=== PATIENT | female | born 1975 | race Caucasian/White ===

== ENCOUNTER 2022-12-10 00:26 | Day surgery (SDC) | payer OTHER, SELFPAY ==
[2022-12-06 11:13] VITALS: BMI 23.0
--- NOTE | 2022-12-06 11:21 | PC.NURSE ---
Report to the Outpatient Waiting Room, entrance under the green pavilion located off [facility], at time 0600 on date 12/10/22. Planned Procedure Time: 0730. Time changes happen often and if your time is changed the preop area will call you the afternoon before. - You and your visitor will be asked to self-screen and do not enter if you have any COVID symptoms. - Only one visitor is requested with a max of two and NO children visitors are allowed at this time. - The patient visitor may be requested to leave or wait in car when not with patient due to distancing restrictions. - A mask is optional within the hospital at this time. Patients may have clear liquids (water, carbonated beverages, clear teas, apple juice) until 3 hours prior to surgery with a maximum of 20 ounces. - No food from midnight until time of surgery Take the following medications with a SIP of water the morning of surgery: HYDROXYZINE IF NEEDED DO NOT STOP ANY OF YOUR OTHER PRESCRIPTION MEDICATIONS PRIOR TO SURGERY EXCEPT THE FOLLOWING Medications to discontinue per physician: VITAMINS/SUPPLEMENTS Date to take last dose: 12/06/22 Please no make-up, nail english, hairspray, perfume, deodorant, or body powder the day of surgery. No jewelry (including any body piercings) or valuables the day of surgery, leave them at home. Please take a shower or bath the night before, or the morning of, surgery with an antibacterial soap. Wear comfortable, loose fitting clothing. - Jewelry must be removed prior to entering the operating room. Rings and piercings that are not removed may be cut off. - The hospital will not accept responsibility for valuables. - Please leave all valuables, including medications, at home the day of surgery. If you are going home after surgery, a licensed winch driver must drive you home. - NO public transportation without another adult if you receive anesthesia. - We recommend that an adult stay with you for 24 hours following discharge. - We also recommend that you do not drive, make important decision, drink alcoholic beverages, or take any drugs that were not prescribed by your health care provider for at least 24 hours after your discharge time. Follow any additional instructions given to you from your surgeon. If you or anyone in your household have experienced Covid symptoms in the past week, please notify your surgeon or the nurse liaison at the phone number below for possible testing. Telephone instructions given to PT - NICOLASA MONTIEL and asked if any additional questions and then verbalized understanding. Patient advised to call surgeon office or pre surgery nurse liaison [phone] if any additional questions.
--- NOTE | 2022-12-07 07:38 | PM.IMHP ---
H&P: HPI History of Present Illness Date/Time: 12/07/22 07:38 Chief Complaint: Bleeding pelvic pain and severe dyspareunia Narrative: This is 47-year-old 3 admitted with symptomatic this hysterectomy salpingectomy she had no luck for pain as she refused or using made UD she is status post tubal ligation she also has second-degree prolapse liver pain discomfort bleeding refractory medical therapy she will undergo robotic total hysterectomy and bilateral salpingectomy risks and benefits this was of , aspiration pneumonia, bleeding, transfusion, perforation injury to bowel, bladder, ureters, or other internal organs with need for open laparotomy and repair. She received the [employer] handout entitled hysterectomy as well as the de Alexa handout. She had all questions answered. She asked to proceed COUNT INCLUDES THE [facility] Social History Social History Smoking status: Current some day smoker Tobacco type: cigarettes Alcohol intake: current Drinks per week: 2 Substance use: current Substance use type: marijuana Living arrangements: with family Spiritual care concerns: No Meds Home Medications and Allergies Home Medications Medication Instructions Recorded Confirmed Type ascorbic acid (vitamin C) 500 mg 1,000 mg PO DAILY 12/06/22 12/06/22 History tablet (Vitamin C) cetirizine 10 mg tablet (Zyrtec) 10 mg PO DAILY 12/06/22 12/06/22 History cholecalciferol (vitamin D3) 125 125 mcg PO DAILY 12/06/22 12/06/22 History mcg (5,000 unit) tablet (Vitamin D3) ferrous sulfate 325 mg (65 mg 325 mg PO DAILY 12/06/22 12/06/22 History iron) tablet (Iron (ferrous sulfate)) hydroxyzine HCl 25 mg tablet 25 mg PO QID PRN Anxiety 12/06/22 12/06/22 History meclizine 25 mg tablet 25 mg PO Q6H VERTIGO 12/06/22 12/06/22 History multivitamin 1 tablet PO DAILY 12/06/22 12/06/22 History pantoprazole 20 mg tablet,delayed 20 mg PO BID 12/06/22 12/06/22 History release Allergies Allergy/AdvReac Type Severity Reaction Status Date / Time No Known Allergies Allergy Verified 12/06/22 11:08 Exam Const: General: cooperative, healthy appearing, comfortable and overweight Orientation/consciousness: oriented to person, oriented to place and oriented to time Resp: Effort & Inspection: normal respiratory effort Cardio: Rate: regular rate Rhythm: regular rhythm Heart sounds: S1 normal heart sound present and S2 normal heart sound present GI: Inspection: normal to inspection Percussion: Yes normal to percussion Auscultation: normal bowel sounds : External Female Exam: normal external appearance Speculum Exam - Vagina: normal appearance of the vagina Speculum Exam - Cervix: normal appearance of the cervix (Secondary prolapse present) Bimanual exam- vagina & uterus: enlarged (Uterus approximately 14 weeks in size) Bimanual Exam- Adnexa, other: normal adnexae Assessment and Plan Assessment and plan (1) Uterine fibroid: Code(s): D25.9 - Leiomyoma of uterus, unspecified Status: Acute (2) Pelvic pain: Code(s): R10.2 - Pelvic and perineal pain Status: Acute (3) Dyspareunia: Status: Acute (4) Excessive bleeding: Code(s): R58 - Hemorrhage, not elsewhere classified Status: Acute Plan Robotic total vaginal hysterectomy and bilateral salpingectomy
[2022-12-10] VITALS (9 sets, daily range): BP systolic 92–131; BP diastolic 55–79; PULSE 51–76; RESP 8–16; TEMP 36.2–36.9; O2SAT 99–100
--- NOTE | 2022-12-10 06:25 | WPDHPUPDATE1 ---
History and Physical Update Update Date/Time: 12/10/22 06:25 History and Physical has been reviewed, including an updated exam of the patient. There are NO changes in the patient's condition. Risks, benefits, and alternatives have been discussed and questions answered. Patient agrees to proceed with procedure.
--- NOTE | 2022-12-10 10:16 | WPDANESEPPF ---
Anes - Initial Pre Proc Eval Procedure: Operation Date: 12/10/22 11:30 Proposed Procedures p Robotic Assisted Total Vaginal Hysterectomy with Bilateral Salpingectomy - Adam Weinstein MD Date/Time: 12/10/22 10:16 Surgeon: Adam Weinstein MD Pre Op Diagnosis: enlarged uterus,pelvic pain,fibroids Patient Data Age: 47 Gender: F Height: 1.63 m Weight: 60.8 kg Allergies Allergy/AdvReac Type Severity Reaction Status Date / Time No Known Allergies Allergy Verified 12/10/22 10:06 Home Medications Medication Instructions Recorded Confirmed Type ascorbic acid (vitamin C) 500 mg 1,000 mg PO DAILY 12/06/22 12/10/22 History tablet (Vitamin C) cetirizine 10 mg tablet (Zyrtec) 10 mg PO DAILY 12/06/22 12/10/22 History cholecalciferol (vitamin D3) 125 125 mcg PO DAILY 12/06/22 12/10/22 History mcg (5,000 unit) tablet (Vitamin D3) ferrous sulfate 325 mg (65 mg 325 mg PO DAILY 12/06/22 12/10/22 History iron) tablet (Iron (ferrous sulfate)) hydroxyzine HCl 25 mg tablet 25 mg PO QID PRN Anxiety 12/06/22 12/06/22 History meclizine 25 mg tablet 25 mg PO Q6H VERTIGO 12/06/22 12/06/22 History multivitamin 1 tablet PO DAILY 12/06/22 12/10/22 History pantoprazole 20 mg tablet,delayed 20 mg PO BID 12/06/22 12/10/22 History release hydrocodone 5 mg-acetaminophen 325 1 tablet PO Q4H PRN pain #30 tabs 12/10/22 Rx mg tablet Patient hx anesthesia problems: post op nausea/vomiting Family hx anesthesia problems: none Results Review: All pre-operative results and documents have been reviewed as part of the pre-operative evaluation. [facility] Past Medical History Medical History Anxiety Social History Social History Smoking status: Current some day smoker Tobacco type: cigarettes Alcohol intake: current Drinks per week: 2 Substance use: current Substance use type: marijuana Living arrangements: with family Spiritual care concerns: No Anes - Eval Final PreProcedure Day of Procedure 12/10/22 10:16 Patient weight: normal Heart: regular rate and rhythm Lungs: clear to auscultation Airway: Mallampati scale class II Neurological: alert and oriented Last oral intake: >/= 8 hours ASA classification: II Emergent: no Anesthetic plan: proceed Anesthesia type and monitoring: general ETT and standard monitoring Results Review: All pre-operative results and documents have been reviewed as part of the pre-operative evaluation. Informed Consent: The patient's anesthetic plan and its attendant risks and benefits were discussed with the patient/family/POA. Questions were solicited and answers provided to the satisfaction of the patient/family/POA.
[2022-12-10] MEDS: ACETAMINOPHEN 500 MG TABLET 1000 MG PO (10:27)
[2022-12-10] MEDS: LACTATED RINGERS 1,000 ML 30 ML IV CONT ×2 (10:28→12:14)
[2022-12-10] MEDS: KETOROLAC 15 MG/ML VIAL (*BKC) IV PUSH (10:29)
[2022-12-10] MEDS: SCOPOLAMINE 1.5 MG PATCH TRANSDERM (10:33)
[2022-12-10 10:34] LABS: Basophils Absolute Auto 0.1 K/mm3 (0.0-0.1); Basophils Percent Auto 0.7 % (0.2-1.2); Eosinophils Absolute Auto 0.1 K/mm3 (0-0.3); Eosinophils Percent Auto 0.8 % (0-4.4); Hemoglobin 11.5 g/dL (12.0-15.0); Immature Granulocyte Absolute 0.02 K/mm3 (0.00-0.031); Immature Granulocyte Percent A 0.3 % (0-0.5); Lymphocytes Absolute Auto 1.79 K/mm3 (0.9-3.2); Lymphocytes Percent Auto 24.7 % (18.3-44.2); Mean Corpuscular HGB Conc 31.9 g/dl (32-36); Mean Corpuscular Hemoglobin 27.4 pg (26-34); Mean Corpuscular Volume 85.9 fl (80-100); Mean Platelet Volume 8.8 fl (7.4-10.4); Monocytes Absolute Auto 0.4 K/mm3 (0.1-0.6); Monocytes Percent Auto 5.9 % (2.6-8.5); Neutrophils Absolute Auto 4.9 K/mm3 (1.3-6.7); Neutrophils Percent Auto 67.6 % (45.5-73.1); Platelet Count Result 345 k/mm3 (150-375); Red Blood Count 4.19 M/mm3 (4.2-5.4); Red Cell Distribution Width 18.5 % (11.5-14.5); White Blood Count 7.3 K/mm3 (4.5-10.0)
[2022-12-10] MEDS: ceFAZolin 2 GM/D5W 50 ML 2 GM/50 ML BAG IVPB (10:47)
--- NOTE | 2022-12-10 11:56 | P.OP_ITS ---
Procedure Note - Detailed Date of Procedure 12/10/22 Pre-op Diagnosis enlarged uterus,pelvic pain,fibroids Post-op Diagnosis Same Procedure Performed Robotic total vaginal hysterectomy bilateral salpingectomy Surgeon Adam Weinstein MD Anesthesia General Indications this 47-year-old female with symptomatic uterine fibroids Findings multiple irregular-shaped fibroids normal-appearing ovaries and tubes Description of Procedure the patient is prepped draped in normal sterile fashion placed in dorsal lithotomy position. Under excellent general trach anesthesia weighted speculum placed posterior fornix vagina. Anterior lip of cervix grasped with single- tooth tenaculum. Uterus sounded 8cm. Serial dilatation with fragmented dilators performed followed by passes the 8. DESIRAE and the 3. 0.5 cold cup. Next a 16 Latvian catheter was placed in the bladder which was emptied of clear urine. The weighted speculum and single-tooth removed and the gloves were changed. Supraumbilical incision made the Veress needle passed in the abdomen. Abdomen filled with CO2 gas to 15mm Hg. The 8mm trocar advanced in the abdomen downside visualized no injury seen. Patient placed in Trendelenburg and right left l ateral quadrant incisions made 8mm trocars advanced under direct visualization assuring no injury and right upper quadrant incision made the 8mm trocar advanced under direct visualization assuring no injury. The robot was docked. Attention was turned to console. The left round ligament grasped, burned, cut. Anterior bladder flap was formed by sharply dissecting the peritoneum and reflecting the bladder caudally away from the cervix uterus the opposite round ligament which was clamped, burned, cut. The fallopian tube on the left was skeletonized and sharply dissected away from the ovarian complex and left to the its uterine origin. The right fallopian tube was removed in the same way leaving it attached to the uterus. The utero-ovarian ligament was skeletonized to conserve the left ovary clamped, burned, cut brought to the previously cut round ligament. In like fashion the utero-ovarian ligament was skeletonized clamping burning cutting and conserving the right ovary. The left cardinal broad ligaments were then serially skeletonized clamping burning cutting and bring these lateral edge of uterus until the large tortuous blood vessels could be seen on the left these were individually clamped, burned, cut. In like fashion the cardinal broad ligaments on the right were serially skeletonized clamping burning cutting until the uterine vessels could be seen on the right t hese were individually clamped, burned, cut. Hemostasis was assured and excellent blanching of the uterus seen a colpotomy incision was then made. The uterus cervix and tubes removed through the vagina. The vagina then closed with continuous running 0V lock from lateral edge to lateral edge back to the midline. Irrigation undertaken to clear and hemostasis was assured. Gateway term was placed over the raw surface area and blood loss was estimated. The instruments were withdrawn. The robot was undocked the gas removed from the abdomen. The trocars removed the incisions closed with 4 Monocryl and glue. The patient was awakened and went recovery in satisfactory condition. All sponge, needle, instrument counts were correct. There were no immediate complications Estimated Blood Loss 25 Drains No Packing No Pathology Yes Complications No immediate complications Condition Stable Disposition PACU
[2022-12-10] MEDS: fentaNYL CITRATE INJ (*CRX) 100 MCG/2 ML VIAL 25 MCG IV PUSH ×7 (12:34→13:36)
--- NOTE | 2022-12-10 13:43 | ADMGEN ---
This patient, Ford Garcia, was admitted to OB 2nd Floor Room 283-00. Patient/family oriented to hospital policies and general routines including ID bracelet, bed and alarms, visiting hours, pain management, procedures, bathroom and other care routines, personal items, smoking policy, room service/diet, and visiting hours. Information on how to activate the Rapid Response Team has been discussed. Patient/Family are encouraged to report perceived risks to care and to ask questions if they do not understand what they are told or what they should do.
[2022-12-10] MEDS: DEXTROSE 5%/LACTATED RINGERS 1,000 ML 125 ML IV CONT (13:53)
[2022-12-10] MEDS: KETOROLAC 30 MG/ML VIAL (*BKC) IV PUSH (13:54)
[2022-12-10] MEDS: PROPARACAINE HCL 0.5% 15 ML OPHTH SOLN 1 DROP EACH EYE (14:39)
[2022-12-10] MEDS: ARTIFICIAL TEARS OPHTH SOLN 15 ML BOTTLE 1 DROP EACH EYE (14:40)
[2022-12-10] MEDS: HYDROcodone/acetaminophen (*CRX) 5-325 MG TABLET 1 TAB PO ×2 (14:43→17:44)
[2022-12-10] MEDS: SIMETHICONE 80 MG TAB.CHEW PO (14:43)
[2022-12-10] MEDS: DOCUSATE SODIUM 100 MG CAPSULE PO (17:44)
[2022-12-10] MEDS: HYDROcodone/acetaminophen (*CRX) 10-325 MG TABLET 1 TAB PO (20:43)
[2022-12-10] MEDS: IBUPROFEN 600 MG TABLET PO (20:45)
[2022-12-11] MEDS: HYDROcodone/acetaminophen (*CRX) 10-325 MG TABLET 1 TAB PO ×2 (00:26→09:08)
[2022-12-11] MEDS: SIMETHICONE 80 MG TAB.CHEW PO ×2 (00:27→09:08)
[2022-12-11 00:32] VITALS: BP 85/50; PULSE 51; RESP 16; TEMP 36.6; O2SAT 99
[2022-12-11 05:14] VITALS: BP 87/48; PULSE 62; RESP 14; TEMP 37; O2SAT 98
[2022-12-11 05:51] LABS: Basophils Absolute Auto 0.1 K/mm3 (0.0-0.1); Basophils Percent Auto 0.7 % (0.2-1.2); Eosinophils Absolute Auto 0.1 K/mm3 (0-0.3); Eosinophils Percent Auto 0.7 % (0-4.4); Hematocrit 30.7 % (37.0-47.0); Hemoglobin 9.7 g/dL (12.0-15.0); Immature Granulocyte Absolute 0.04 K/mm3 (0.00-0.031); Immature Granulocyte Percent A 0.3 % (0-0.5); Lymphocytes Absolute Auto 2.05 K/mm3 (0.9-3.2); Lymphocytes Percent Auto 16.8 % (18.3-44.2); Mean Corpuscular HGB Conc 31.6 g/dl (32-36); Mean Corpuscular Hemoglobin 27.4 pg (26-34); Mean Corpuscular Volume 86.7 fl (80-100); Mean Platelet Volume 9.2 fl (7.4-10.4); Monocytes Absolute Auto 0.7 K/mm3 (0.1-0.6); Monocytes Percent Auto 5.7 % (2.6-8.5); Neutrophils Absolute Auto 9.2 K/mm3 (1.3-6.7); Neutrophils Percent Auto 75.8 % (45.5-73.1); Platelet Count Result 258 k/mm3 (150-375); Red Blood Count 3.54 M/mm3 (4.2-5.4); Red Cell Distribution Width 18.4 % (11.5-14.5); White Blood Count 12.2 K/mm3 (4.5-10.0)
--- NOTE | 2022-12-11 07:09 | PM.DS ---
DS: Admitting Diagnosis Discharge Date 12/11/2022 Admitting Diagnosis uterine fibroids /pelvic pain/ enlarged uterus DS: Discharge Diagnosis Discharge Diagnosis (1) Excessive bleeding: Code(s): R58 - Hemorrhage, not elsewhere classified Status: Acute (2) Dyspareunia: Status: Acute (3) Pelvic pain: Code(s): R10.2 - Pelvic and perineal pain Status: Acute (4) Uterine fibroid: Code(s): D25.9 - Leiomyoma of uterus, unspecified Status: Acute DS: Summary Hospital Course Reason for hospitalization: patient was admitted for robotic hysterectomy bilateral salpingectomy Hospital Course: the patient underwent robotic total vaginal hysterectomy and bilateral salpingectomy on 12/10/2022. Her hospital course was unremarkable. She remained afebrile. She was up, eating regular diet, voiding without difficulty, ambulating, and generally without complaints. Time Spent with Patient Time attestation: Total time spent providing and/or coordinating discharge services: Exam Const: General: cooperative, healthy appearing and comfortable Nutritional Appearance: average body habitus Orientation/consciousness: oriented to person, oriented to place and oriented to time HENMT: Head: normal to inspection Resp: Effort & Inspection: normal respiratory effort Cardio: Rate: regular rate Rhythm: regular rhythm Heart sounds: S1 normal heart sound present and S2 normal heart sound present GI: Inspection: normal to inspection and incision (cdi) DS: Data Data Completed and Pending Pending studies at discharge: Pending at discharge 12/10/22 11:21 Surgical [PTH] Routine Labs on day of discharge: Labs from last 24 hours 12/11/22 12/10/22 12/10/22 05:28 09:50 09:50 WBC 12.2 H 7.3 RBC 3.54 L 4.19 L Hgb 9.7 L 11.5 L Hct 30.7 L 36.0 L MCV 86.7 85.9 MCH 27.4 27.4 MCHC 31.6 L 31.9 L RDW 18.4 H 18.5 H Plt Count 258 345 MPV 9.2 8.8 Immature Gran % (Auto) 0.3 0.3 Neut % (Auto) 75.8 H 67.6 Lymph % (Auto) 16.8 L 24.7 [place] % (Auto) 5.7 5.9 Eos % (Auto) 0.7 0.8 Baso % (Auto) 0.7 0.7 Lymph # (Auto) 2.05 1.79 [place] # (Auto) 0.7 H 0.4 Eos # (Auto) 0.1 0.1 Baso # (Auto) 0.1 0.1 Abs Immat Gran (auto) 0.04 H 0.02 Absolute Neuts (auto) 9.2 H 4.9 Absolute Nucleated RBC 0.0 0.0 Nucleated RBC % 0.0 0.0 Blood Type A Positive Antibody Screen Negative Discharge Plan Discharge Patient Disposition: Home, Self-Care Discharge Instructions: Remove the Scopolamine patch that was placed behind your ear in 72 hours or less. Wash your hands after touching. Stand Alone Forms: General Discharge Instructions Follow-up/Referrals: Adam Ordoñez MD [Physician] - Discharge Medications: New hydrocodone-acetaminophen 5-325 mg tablet 1 tablet PO Q4H PRN (Reason: pain) Qty: 30 0RF Continued multivitamin Tablet 1 tablet PO DAILY cetirizine [Zyrtec] 10 mg Tablet 10 mg PO DAILY pantoprazole 20 mg Tablet,Delayed Release (Dr/Ec) 20 mg PO BID ascorbic acid (vitamin C) [Vitamin C] 500 mg Tablet 1,000 mg PO DAILY meclizine 25 mg tablet 25 mg PO Q6H ferrous sulfate [Iron (ferrous sulfate)] 325 mg (65 mg iron) Tablet 325 mg PO DAILY hydroxyzine HCl 25 mg Tablet 25 mg PO QID PRN (Reason: Anxiety) cholecalciferol (vitamin D3) [Vitamin D3] 125 mcg (5,000 unit) Tablet 125 mcg PO DAILY
--- NOTE | 2022-12-11 07:12 | PM.GYNPNOP ---
PARALEGAL - A/P Postoperative Procedures: Procedures Operation Date: 12/10/22 11:30 Actual Procedure Side Surgeon p Robotic Assisted Total Vaginal Hysterectomy with Bilateral Salpingectomy Bilateral Adam Weinstein MD Postoperative day: 1 Postoperative status: doing well Postoperative plan: routine post-op care, advance diet and discharge Time Spent With Patient Time: Total time spent is greater than 50% in coordination of care (as documented) at patient's floor/unit and/or counseling patient: Time with patient: less than 15 minutes PARALEGAL- PN:Subj Post-Op Subjective Date/time seen: 12/11/22 07:12 Subjective: patient has no complaints, patient desires discharge and patient is tolerating oral intake Exam Const: General: cooperative, healthy appearing and comfortable Nutritional Appearance: average body habitus Orientation/consciousness: oriented to person, oriented to place and oriented to time HENMT: Head: normal to inspection Resp: Effort & Inspection: normal respiratory effort Cardio: Rate: regular rate Rhythm: regular rhythm Heart sounds: S1 normal heart sound present and S2 normal heart sound present GI: Inspection: normal to inspection and incision ( CDI) PARALEGAL - PN: Obj Data Vital Signs Vital Signs: Vital Signs - 24 hr 12/10/22 10:00 12/10/22 12:15 12/10/22 12:30 Temperature 97.7 F 97.2 F L Pulse Rate 62 76 60 Respiratory Rate 16 8 L 10 L Blood Pressure 116/63 106/59 L 109/66 Pulse Oximetry 100 100 100 Oxygen Delivery Room Air Simple Face Mask Simple Face Mask Oxygen Flow Rate 8 8 12/10/22 12:45 12/10/22 13:00 12/10/22 13:15 Temperature Pulse Rate 64 68 64 Respiratory Rate 10 L 10 L 10 L Blood Pressure 110/58 L 112/79 114/68 Pulse Oximetry 100 100 100 Oxygen Delivery Simple Face Mask Simple Face Mask Room Air Oxygen Flow Rate 8 8 12/10/22 13:30 12/10/22 14:00 12/10/22 13:50 Temperature 97.6 F Pulse Rate 51 L 64 Respiratory Rate 10 L 16 Blood Pressure 116/55 L 131/70 Pulse Oximetry 100 100 Oxygen Delivery Room Air Room Air Oxygen Flow Rate 12/10/22 20:29 12/10/22 20:29 12/11/22 00:32 Temperature 98.4 F Pulse Rate 71 71 51 L Respiratory Rate 16 16 16 Blood Pressure 92/60 L Pulse Oximetry 99 99 99 Oxygen Delivery Room Air Room Air Oxygen Flow Rate 12/11/22 00:32 12/11/22 05:14 12/11/22 05:14 Temperature 97.8 F 98.6 F Pulse Rate 51 L 62 62 Respiratory Rate 16 14 14 Blood Pressure 85/50 L 87/48 L Pulse Oximetry 99 98 98 Oxygen Delivery Room Air Oxygen Flow Rate Intake/Output Intake/Output: Intake & Output 12/08/22 12/09/22 12/10/22 12/11/22 23:59 23:59 23:59 23:59 Intake Total 3090 Output Total 600 Balance 2490 Meds/Results Medications: Active Medications Generic Name Dose Route Start Last Admin Trade Name Freq PRN Reason Stop Dose Admin Hydrocodone Bitart/Acetaminophen 1 tab 12/10/22 13:37 12/10/22 17:44 Hydrocodone/Acetaminophen (*Crx) 5-325 Mg Tablet PO 1 tab Q3H PRN Administration Pain Rated 5 or Less Hydrocodone Bitart/Acetaminophen 1 tab 12/10/22 13:37 12/11/22 00:26 Hydrocodone/Acetaminophen (*Crx) 10-325 Mg Tablet PO 1 tab Q3H PRN Administration Pain Rated 6 or Greater Artificial Tears 1 drop 12/10/22 14:23 12/10/22 14:40 Artificial Tears Ophth Soln 15 Ml Bottle EACH EYE 1 drop Q2H PRN Administration Dry Eye(s) Diclofenac Sodium 1 drop 12/10/22 22:00 Diclofenac Sodium 0.1% Ophth Soln 2.5 Ml Bottle EACH EYE 12/14/22 21:59 Q8HR GHISLAINE Docusate Sodium 100 mg 12/10/22 17:00 12/10/22 17:44 Docusate Sodium 100 Mg Capsule PO 100 mg BID GHISLAINE Administration Enoxaparin Sodium 40 mg 12/11/22 09:00 Enoxaparin 40 Mg/0.4 Ml Syringe SUB-Q DAILY GHISLAINE Dextrose/Lactated Ringer's 1,000 mls @ 125 mls/hr 12/10/22 13:37 12/10/22 20:35 Dextrose 5%/Lactated Ringers IV CONT Infused .Q8H GHISLAINE Infusion Ibuprofen 600 mg 12/10/22
--- NOTE | 2022-12-11 07:58 | WPDANESPN ---
Anes - Prog Note Post-Op Date/Time: 12/11/22 07:58 Cardiovascular status: normal Respiratory status: normal Airway patency: baseline Mental status: baseline Post-Op hydration status: normal Vital Signs: Last Vital Signs Temp 37.0 C 12/11/22 05:14 Pulse 62 12/11/22 05:14 Resp 14 12/11/22 05:14 BP 87/48 L 12/11/22 05:14 Pulse Ox 98 12/11/22 05:14 O2 Del Method Room Air 12/11/22 05:14 O2 Flow Rate 8 12/10/22 13:00 Pain Score (VAS): 11/05 I/O: Intake & Output 12/10/22 12/10/22 12/11/22 15:59 23:59 07:59 Intake Total 1850 1240 Output Total 600 Balance 1250 1240 Laboratory Tests 12/11/22 05:28 12/10/22 12/10/22 12/11/22 09:50 09:50 05:28 WBC 7.3 12.2 H RBC 4.19 L 3.54 L Hgb 11.5 L 9.7 L Hct 36.0 L 30.7 L MCV 85.9 86.7 MCH 27.4 27.4 MCHC 31.9 L 31.6 L RDW 18.5 H 18.4 H Plt Count 345 258 MPV 8.8 9.2 Immature Gran % (Auto) 0.3 0.3 Neut % (Auto) 67.6 75.8 H Lymph % (Auto) 24.7 16.8 L [place] % (Auto) 5.9 5.7 Eos % (Auto) 0.8 0.7 Baso % (Auto) 0.7 0.7 Lymph # (Auto) 1.79 2.05 [place] # (Auto) 0.4 0.7 H Eos # (Auto) 0.1 0.1 Baso # (Auto) 0.1 0.1 Abs Immat Gran (auto) 0.02 0.04 H Absolute Neuts (auto) 4.9 9.2 H Absolute Nucleated RBC 0.0 0.0 Nucleated RBC % 0.0 0.0 Blood Type A Positive Antibody Screen Negative Post-procedural complaints: none Patient Feedback: Patient satisfied with anesthetic care.
[2022-12-11 09:00] VITALS: BP 99/56; PULSE 54; RESP 18; TEMP 37.2
[2022-12-11] MEDS: ENOXAPARIN 40 MG/0.4 ML SYRINGE SUB-Q (09:08)
[2022-12-11] MEDS: IBUPROFEN 600 MG TABLET PO (09:09)
[2022-12-11] MEDS: DOCUSATE SODIUM 100 MG CAPSULE PO (09:09)
[2022-12-11] MEDS: ARTIFICIAL TEARS OPHTH SOLN 15 ML BOTTLE 1 DROP EACH EYE (09:16)
== END 2022-12-11 11:10 | disposition home or self-care (01) ==
LOC: ANHSURGERY 09:44 → ANHOB2 13:40
PROVIDERS: PCP Family Medicine Sports Medicine; Visit Provider Obstetrics & Gynecology
PROC: (CPT 58552; principal; 2022-12-10 11:30)
DX: D25.1 Intramural leiomyoma of uterus (principal); R10.2 Pelvic and perineal pain; N72 Inflammatory disease of cervix uteri; N83.8 Other noninflammatory disorders of ovary, fallopian tube and broad ligament; N94.10 Unspecified dyspareunia; N81.2 Incomplete uterovaginal prolapse; N93.9 Abnormal uterine and vaginal bleeding, unspecified; F17.210 Nicotine dependence, cigarettes, uncomplicated; F12.90 Cannabis use, unspecified, uncomplicated
CPT/HCPCS: 58552; S2900; 36415; 85025; 86850; 86900; 86901; 88307; 99199; A9270; J0330; J0690; J1100; J1650; J1885; J2250; J2405; J2704; J2710; J3010; J7030; J7120; J7121